=== PATIENT | male | born 1995 | race Caucasian/White ===

== ENCOUNTER 2020-03-13 20:44 | Emergency (ER) | payer OTHER ==
[2020-03-13] MEDS ORDERED: D50W 25 GM/50 ML SYRINGE/VIAL IV ONE (21:24)
[2020-03-13] MEDS ORDERED: NA CHLORIDE 0.9% 1,000 ML ONE (21:30)
[2020-03-13 21:54] LABS: Absolute Lymphocytes (CBC) 4.9 K/uL (0.7-4.9); Lymphocytes % 44.8 % (15.3-44.8); MPV 8.9 fL (7.6-11.3); RBC Red Blood Cell Count 5.56 M/uL (4.33-5.43)
[2020-03-13 22:05] LABS: Potassium 3.3 mmol/L (3.5-5.1)
--- NOTE | 2020-03-13 22:16 | EDPHYS ---
Physician Documentation [facility] Name: Myron Carver Age: 25 yrs Sex: Male : 1995 Arrival Date: 03/13/2020 Time: 20:45 Bed 14 Private MD: ED Physician Rudy Tijerina HPI: 03/13 21:23 This 25 yrs old Male presents to ER via Wheelchair with complaints of Breaking out in snw sweats, Other, Type 1 diabetic. 21:23 Onset: The symptoms/episode began/occurred acutely. Associated signs and symptoms: snw Pertinent positives: nausea, diaphoresis, near syncope, dizziness. It is unknown whether or not the patient has had similar symptoms in the past. The patient has not recently seen a physician. working out in heat, ate last at 1700, dosed himself with insulin when he started feeling poorly. FSBS in triage 38mg/dl. Historical: - Allergies: 21:06 Penicillins; ao - Home Meds: 21:06 Novolog [Active]; Lantus Sub-Q [Active]; gabapentin oral oral [Active]; ao - PMHx: 21:06 Diabetes - IDDM; Brain infection; Strokes; ao - PSHx: 21:06 None; ao - Immunization history:: Adult Immunizations up to date. - Social history:: Smoking status: Patient reports the use of cigarette tobacco products, smokes one pack cigarettes per day. Patient/guardian denies using alcohol, street drugs. ROS: 21:22 Constitutional: Negative for fever, chills, and weight loss, diaphoresis Eyes: Negative snw for injury, pain, redness, and discharge, ENT: Negative for injury, pain, and discharge, Neck: Negative for injury, pain, and swelling, Cardiovascular: Negative for chest pain, palpitations, and edema, Respiratory: Negative for shortness of breath, cough, wheezing, and pleuritic chest pain. 21:22 Back: Negative for injury and pain, : Negative for injury, bleeding, discharge, and swelling, MS/Extremity: Negative for injury and deformity, Skin: Negative for injury, rash, and discoloration, Psych: Negative for depression, anxiety, suicide ideation, homicidal ideation, and hallucinations. 21:22 Abdomen/GI: Positive for nausea. 21:22 Neuro: Positive for dizziness, near syncope. Exam: 21:22 Constitutional: This is a well developed, well nourished patient who is awake, alert, snw and in no acute distress. Head/Face: Normocephalic, atraumatic. Eyes: Pupils equal round and reactive to light, extra-ocular motions intact. Lids and lashes normal. Conjunctiva and sclera are non-icteric and not injected. Cornea within normal limits. Periorbital areas with no swelling, redness, or edema. ENT: Nares patent. No nasal discharge, no septal abnormalities noted. Tympanic membranes are normal and external auditory canals are clear. Oropharynx with no redness, swelling, or masses, exudates, or evidence of obstruction, uvula midline. Mucous membranes moist. Neck: Trachea midline, no thyromegaly or masses palpated, and no cervical lymphadenopathy. Supple, full range of motion without nuchal rigidity, or vertebral point tenderness. No Meningismus. Chest/axilla: Normal chest wall appearance and motion. Nontender with no deformity. No lesions are appreciated. Cardiovascular: Regular rate and rhythm with a normal S1 and S2. No gallops, murmurs, or rubs. Normal PMI, no JVD. No pulse deficits. Respiratory: Lungs have equal breath sounds bilaterally, clear to auscultation and percussion. No rales, rhonchi or wheezes noted. No increased work of breathing, no retractions or nasal flaring. Abdomen/GI: Soft, non-tender, with normal bowel sounds. No distension or tympany. No guarding or rebound. No evidence of tenderness throughout. Back: No spinal tenderness. No costovertebral tenderness. Full range of motion. Skin: Warm, dry with normal turgor. Normal color with no rashes, no lesions, and no evidence of cellulitis. MS/ Extremity: Pulses equal, no cyanosis. Neurovascular intact. Full, normal range of motion. Neuro: Awake and alert, GCS 15, oriented to person, place, time, and situation. Cranial nerves II-XII grossly intact. Motor strength 5/5 in all extremities. Sensory grossly intact. Cerebellar exam normal. Normal gait. Psych: Awake, alert, with orientation to person, place and time. Behavior, mood, and affect are within normal limits. Vital Signs: 21:00 BP 112 / 75; Pulse 92; Resp 16; Temp 99.7(O); Pulse Ox 98% on R/A; Weight 65.77 kg; ao Height 5 ft. 3 in. (160.02 cm); Pain 0/10; 21:00 Body Mass Index 25.69 (65.77 kg, 160.02 cm) ao MDM: 21:19 Patient medically screened. snw 22:17 Data reviewed: vital signs, nurses notes. Data interpreted: Pulse oximetry: on room air snw is 98 %. Interpretation: normal. Counseling: I had a detailed discussion with the patient and/or guardian regarding: the historical points, exam findings, and any diagnostic results supporting the discharge/admit diagnosis, lab results, the need for outpatient follow up, to return to the emergency department if symptoms worsen or persist or if there are any questions or concerns that arise at home. Response to treatment: the patient's condition has returned to base line. Special discussion: Based on the history and exam findings, there is no indication for further emergent testing or inpatient evaluation. I discussed with the patient/guardian the need to see the primary care provider for further evaluation of the symptoms. 03/13 21:20 Order name: CBC with Diff; Complete Time: 21:55 snw 03/13 21:20 Order name: Chem 7; Complete Time: 22:09 snw 03/13 21:20 Order name: CPK; Complete Time: 22:09 snw 03/13 22:23 Order name: Glucose, Ancillary Testing; Complete Time: 22:23 EDMS 03/13 22:25 Order name: Glucose, Ancillary Testing; Complete Time: 22:29 EDMS 03/13 21:20 Order name: FSBS; Complete Time: 21:36 snw 03/13 22:01 Order name: FSBS; Complete Time: 02:45 snw Administered Medications: 21:33 Drug: D50W 50 ml Route: IVP; Site: right antecubital; vc 21:34 Drug: NS 0.9% 1000 ml Route: IV; Rate: 1 bolus; Site: right antecubital; vc Disposition: 03/14 06:32 Co-signature as Attending Physician, Rudy Tijerina MD. [email or web address] Disposition: 03/13/20 22:16 Discharged to Home. Impression: Hypoglycemia, unspecified, Dehydration. - Condition is Stable. - Discharge Instructions: Dehydration, Adult, Hypoglycemia, Blood Glucose Monitoring, Adult, Rehydration, Adult. - Work release form, Medication Reconciliation Form, Thank You Letter, Antibiotic Education, Prescription Opioid Use form. - Follow up: Emergency Department; When: As needed; Reason: Worsening of condition. Follow up: Private Physician; When: 2 - 3 days; Reason: Recheck today's complaints, Continuance of care, Re-evaluation by your physician. Signatures: Dispatcher [employer] EDMS Whitney Selby, MATIAS-C SHIRT HEMMER-Csnw Debra Denney RN RN lp1 Mitul Patterson RN RN ao Gayathri Mike RN RN Rudy Squires MD MD 7 Corrections: (The following items were deleted from the chart) 03/13 22:46 22:16 03/13/2020 22:16 Discharged to Home. Impression: Hypoglycemia, unspecified; lp1 Dehydration. Condition is Stable. Discharge Instructions: Dehydration, Adult, Hypoglycemia, Blood Glucose Monitoring, Adult, Rehydration, Adult. Forms are Work release form, Medication Reconciliation Form, Thank You Letter, Antibiotic Education, Prescription Opioid Use. Follow up: Emergency Department; When: As needed; Reason: Worsening of condition. Follow up: Private Physician; When: 2 - 3 days; Reason: Recheck today's complaints, Continuance of care, Re-evaluation by your physician. snw
--- NOTE | 2020-03-13 22:16 | ER ---
Nurse's Notes [facility] Name: Myron Carver Age: 25 yrs Sex: Male : 1995 Arrival Date: 03/13/2020 Time: 20:45 Bed 14 Private MD: Diagnosis: Hypoglycemia, unspecified;Dehydration Presentation: 03/13 21:00 Chief complaint: Patient states: Pt felt dizzy and almost pass out. Pt started to ao sweat. Pt is diabetic and gave himself insulin this afternoon. Coronavirus screen: Proceed with normal triage. Ebola Screen: Patient negative for fever greater than or equal to 101.5 degrees Fahrenheit, and additional compatible Ebola Virus Disease symptoms Patient denies exposure to infectious person. Patient denies travel to an Ebola-affected area in the 21 days before illness onset. Initial Sepsis Screen: Does the patient meet any 2 criteria? No. Patient's initial sepsis screen is negative. Does the patient have a suspected source of infection? No. Patient's initial sepsis screen is negative. Risk Assessment: Do you want to hurt yourself or someone else? Patient reports no desire to harm self or others. Onset of symptoms is unknown. 21:00 Method Of Arrival: Wheelchair ao 21:00 Acuity: AVERY 3 ao Triage Assessment: 21:30 General: Appears in no apparent distress. uncomfortable, Behavior is calm, cooperative, vc appropriate for age. 21:30 Pain: Denies pain. vc Historical: - Allergies: 21:06 Penicillins; ao - Home Meds: 21:06 Novolog [Active]; Lantus Sub-Q [Active]; gabapentin oral oral [Active]; ao - PMHx: 21:06 Diabetes - IDDM; Brain infection; Strokes; ao - PSHx: 21:06 None; ao - Immunization history:: Adult Immunizations up to date. - Social history:: Smoking status: Patient reports the use of cigarette tobacco products, smokes one pack cigarettes per day. Patient/guardian denies using alcohol, street drugs. Screenin:37 Abuse screen: Denies threats or abuse. Nutritional screening: No deficits noted. vc Tuberculosis screening: No symptoms or risk factors identified. Fall Risk None identified. Assessment: 21:30 General: Appears in no apparent distress. uncomfortable, Behavior is calm, cooperative, vc appropriate for age. Pain: Denies pain. Neuro: Level of Consciousness is awake, alert, obeys commands, Oriented to person, place, time. Cardiovascular: Reports diaphoresis, Capillary refill < 3 seconds Patient's skin is warm and dry. Respiratory: Airway is patent Respiratory effort is even, unlabored, Respiratory pattern is regular, symmetrical. GI: No signs and/or symptoms were reported involving the gastrointestinal system. : No signs and/or symptoms were reported regarding the genitourinary system. EENT: No signs and/or symptoms were reported regarding the EENT system. Derm: Skin is intact, is healthy with good turgor, Skin temperature is warm. 22:30 Reassessment: Patient appears in no apparent distress at this time. Patient and/or vc family updated on plan of care and expected duration. Pain level reassessed. Patient is alert, oriented x 3, equal unlabored respirations, skin warm/dry/pink. [place], bag of chips, and a glass of water given to patient. Vital Signs: 21:00 BP 112 / 75; Pulse 92; Resp 16; Temp 99.7(O); Pulse Ox 98% on R/A; Weight 65.77 kg; ao Height 5 ft. 3 in. (160.02 cm); Pain 0/10; 21:00 Body Mass Index 25.69 (65.77 kg, 160.02 cm) ao ED Course: 20:45 Patient arrived in ED. cf2 21:03 Triage completed. ao 21:03 Arm band placed on right wrist. Patient placed in waiting room, Patient notified of ao wait time. 21:17 Whitney Selby FNP-C is [facility]. snw 21:17 Rudy Tijerina MD is Attending Physician. snw 21:24 Gayathri Mike RN is Primary Nurse. vc 22:45 No provider procedures requiring assistance completed. IV discontinued, intact, vc bleeding controlled, No redness/swelling at site. Pressure dressing applied. 03/14 02:47 Patient has correct armband on for positive identification. Bed in low position. Adult vc w/ patient. Pulse ox on. NIBP on. Administered Medications: 03/13 21:33 Drug: D50W 50 ml Route: IVP; Site: right antecubital; vc 21:34 Drug: NS 0.9% 1000 ml Route: IV; Rate: 1 bolus; Site: right antecubital; vc Outcome: 22:16 Discharge ordered by . van 22:45 Discharged to home ambulatory, with family. vc 22:45 Condition: improved 22:45 Discharge instructions given to patient, family, Instructed on discharge instructions, follow up and referral plans. Demonstrated understanding of instructions, follow-up care. 22:46 Patient left the ED. lp1 Signatures: Whitney Selby, THERAPEUTIC RECREATION ASSISTANT-C THERAPEUTIC RECREATION ASSISTANT-Csnw Debra Denney RN RN lp1 Mitul Patterson RN Edinson Landeros cf2 Gayathri Mike RN RN vc
[2020-03-13 23:01] VITALS: BP 112/75; TEMP 99.7; O2SAT 98
== END 2020-03-13 22:46 | disposition home or self-care (01) ==
LOC: ER 20:44
DX: E10.649 Type 1 diabetes mellitus with hypoglycemia without coma (principal); E86.0 Dehydration; F17.210 Nicotine dependence, cigarettes, uncomplicated; Z86.73 Personal history of transient ischemic attack (TIA), and cerebral infarction without residual deficits; Z88.0 Allergy status to penicillin
CPT/HCPCS: 85025; 80048; 36415; 82550; 82947 ×2; 96374; 99283; J7030